=== PATIENT | female | born 1995 | race Caucasian/White ===

== ENCOUNTER 2016-05-29 22:39 | Emergency (ER) | payer OTHER ==
[~2016-05-29] VITALS: Ht 162.6 cm; Wt 56.3 kg
[~2016-05-29 22:39] MED LIST: [UNRECOGNIZED DRUG - CODE] PO
[2016-05-29 22:44] VITALS: TEMP 36.6; Ht 162.6 cm; Wt 56.3 kg
[2016-05-29 23:52] VITALS: BP 128/76; PULSE 80; O2SAT 97
--- NOTE | 2016-05-30 07:09 | DIAGNOSTIC IMAGING REPORT ---
LEFT ANKLE MIN 3 VIEWS ROUTINE, LEFT FOOT MIN 3 VIEWS ROUTINE CLINICAL HISTORY: left ankle injury. Left foot injury. COMPARISON STUDY: None. FINDINGS: No fracture or dislocation within the left ankle or left foot. Soft tissues unremarkable. No radiopaque bodies. IMPRESSION: No fracture or dislocation within the left ankle or left foot. Electronically signed by: Wiley Sanders M.D. 05/30/2016 7:08 AM Dictated Date/Time: 05/30/2016 7:06 AM
--- NOTE | 2016-05-30 16:09 | EMERGENCY ROOM VISIT NOTE ---
ED Visit Note First contact with patient: 22:48 CHIEF COMPLAINT: Ankle and foot pain HISTORY OF PRESENT ILLNESS: This 21-year-old female patient presents to the emergency department after sustaining an injury to the left ankle and foot with a twisting, inversion motion after falling about one hour ago. The patient complains of pain along the outside of the ankle and lateral foot. The patient rates the pain as dull and 8/10. The patient is not able to bear weight on the foot. Constant pain, worse with movement, weight bearing, and the dependent position. No knee pain, the patient is able to move their toes. No numbness or weakness of the foot, no laceration. The patient has not had a previous fracture to this foot or ankle. The patient has taken nothing for the pain. The patient denies any other injury. REVIEW OF SYSTEMS: A 6 system review of systems was completed with positives and pertinent negatives listed in the HPI. ALLERGIES: No known allergies MEDICATIONS: No chronic medications PMH: Otherwise healthy SOCIAL HISTORY: Student and lives locally PHYSICAL EXAM: Vital Signs: Reviewed Nurse's notes, vital signs stable. GENERAL : White female, no acute distress, but appears in pain, well-developed, well- nourished. MENTAL STATUS: Alert, oriented to person place and time, and cooperative. MUSCULOSKELETAL: The left ankle is swollen and tender over the lateral malleolus, but the skin is intact and there is no ligamentous instability. There is positive fifth metatarsal tenderness. There is no tenderness over the rest of the foot. There is no calf or tibia/fibular tenderness. There is no visual deformity. The foot and toes are warm and well- perfused. Dorsalis pedis pulse 2+. Sensation to pain and light touch is intact. Capillary refill less than 2 seconds. LEFT ANKLE MIN 3 VIEWS ROUTINE, LEFT FOOT MIN 3 VIEWS ROUTINE CLINICAL HISTORY: left ankle injury. Left foot injury. COMPARISON STUDY: None. FINDINGS: No fracture or dislocation within the left ankle or left foot. Soft tissues unremarkable. No radiopaque bodies. IMPRESSION: No fracture or dislocation within the left ankle or left foot. EMERGENCY DEPARTMENT COURSE: Physical exam and history were performed. Nursing notes and EMR were reviewed. The patient appears to fall and suffered injury to her left ankle and foot. X-rays were obtained and read by myself and radiology as showing no acute fracture or dislocation. The patient was placed in a postop shoe as her foot pain appears to be her primary concern. She was given crutches and instructions to follow with orthopedics with any ongoing or persisting symptoms. She was given further instructions as below. The patient was pleased with plan of care and voiced understanding. Problem List Medical Problems: (1) Depression Status: Chronic Current/Historical Medications Scheduled Levonorgestrel & Eth Estradiol (Chateal), 1 TAB PO DAILY Allergies Coded Allergies: BEE STING (Verified Allergy, Unknown, SWELLING,RASH, 05/29/16) Vital Signs Date Time Temp Pulse Resp B/P Pulse Ox O2 Delivery O2 Flow Rate FiO2 05/29/16 23:52 80 18 128/76 97 05/29/16 22:44 36.6 101 18 112/74 97 Room Air Departure Information Impression Primary Impression: Injury of left ankle and foot Dispostion Home / Self-Care Condition GOOD Referrals Kulwinder Redd M.D. Forms HOME CARE DOCUMENTATION FORM, IMPORTANT VISIT INFORMATION Patient Instructions My [facility] Additional Instructions You were seen and evaluated today on an emergency basis only. This is not a substitute for, or an effort to provide, complete comprehensive medical care. It is not possible to recognize and treat all injuries or illnesses in a single emergency department visit. For this reason it is recommended that you followup with [facility] orthopedics, Dr. Redd's office, or with your orthopedist back home if symptoms persist over the next week. For baseline pain relief you may alternate ibuprofen and acetaminophen every 4 hours for pain control. Take 600 mg ibuprofen (Advil) and then 4 hours later take 1000 mg acetaminophen (Tylenol). Do not take more than 3000 mg acetaminophen in a single day. Wear your postop shoe and use your crutches as directed. You are welcome to return to the emergency department anytime with new, worsening, or concerning symptoms.
== END 2016-05-29 23:51 | disposition home or self-care (01) ==
LOC: C.EDB 22:41 → C.EDA 23:51
DX: S99.912A Unspecified injury of left ankle, initial encounter (principal); S99.922A Unspecified injury of left foot, initial encounter; W19.XXXA Unspecified fall, initial encounter; F32.9 Major depressive disorder, single episode, unspecified